=== PATIENT | male | born 1985 | race Caucasian/White ===

== ENCOUNTER 2019-03-31 10:54 | Emergency (ER) | payer OTHER ==
[2019-03-31 11:08] VITALS: RESP 18
[2019-03-31] MEDS ORDERED: HYDROcodone/APAP 5-325MG 1 EACH TAB PO STA (11:54)
[2019-03-31] MEDS ORDERED: IBUPROFEN 600 MG TAB PO STA (11:54)
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
--- NOTE | 2019-03-31 12:51 | XR ---
EXAMINATION TYPE: XR elbow complete RT DATE OF EXAM: 03/31/2019 COMPARISON: NONE HISTORY: Pain FINDINGS: Three views of the elbow demonstrate no pathologic joint effusion. The osseous structures are intact . There is no acute fracture or dislocation. Tiny olecranon spur noted. IMPRESSION: 1. No acute fracture or dislocation. If symptoms persist follow-up MRI could be obtained.
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
[2019-03-31 13:59] VITALS: BP 115/80; PULSE 60; TEMP 98.1
== END 2019-03-31 14:05 | disposition home or self-care (01) ==
LOC: EC 10:54
DX: S50.01XA Contusion of right elbow, initial encounter (principal); F17.200 Nicotine dependence, unspecified, uncomplicated; Y04.2XXA Assault by strike against or bumped into by another person, initial encounter; Y92.009 Unspecified place in unspecified non-institutional (private) residence as the place of occurrence of the external cause
CPT/HCPCS: 99284